=== PATIENT | female | born 1960 | race Asian ===

== ENCOUNTER 2017-09-13 19:06 | Emergency (ER) | payer OTHER ==
[~2017-09-13] VITALS: Ht 157.5 cm; Wt 78.0 kg
[2017-09-13] MEDS ORDERED: LISI40TAB PO (19:28)
[2017-09-13] MEDS ORDERED: hydrochlorothiazide PO (19:28)
[2017-09-13] MEDS ORDERED: SIMV40TA2 PO (19:28)
--- NOTE | 2017-09-13 20:30 | REPUSA ---
Clinical history: Pain, swelling. Findings: The common femoral, superficial femoral, popliteal, and other deep venous structures compre ss normally and demonstrate normal color Doppler flow. Normal venous waveforms with augmentation are seen. Impression: No evidence of deep vein thrombosis in the left femoral popliteal venous system.
[2017-09-13] MEDS ORDERED: NAPR500T PO (20:44)
[2017-09-13] MEDS ORDERED: NAPROXEN 250 MG TAB PO ONE (20:45)
[2017-09-13 21:08] VITALS: BP 129/74
== END 2017-09-13 21:09 | disposition home or self-care (01) ==
LOC: M ED 19:06
DX: M71.22 Synovial cyst of popliteal space [Baker], left knee (principal); I10 Essential (primary) hypertension; E78.5 Hyperlipidemia, unspecified; Z79.899 Other long term (current) drug therapy; Z87.891 Personal history of nicotine dependence